=== PATIENT | female | born 1990 | race Caucasian/White ===

== ENCOUNTER → 2021-04-30 | Outpatient (CLI) | payer BC ==
[~2021-04-30] MED LIST: NORCO 5-325 TA1 EACH PO; TORADOL 10 MG T10 MG PO; ZOFRAN4 MG PO
== END ==
LOC: EXRD 07:54 → US 05-04 09:45
DX: R10.13 Epigastric pain (principal); K21.9 Gastro-esophageal reflux disease without esophagitis; R11.0 Nausea; N28.1 Cyst of kidney, acquired
CPT/HCPCS: 76705

== ENCOUNTER → 2021-05-12 | Outpatient (CLI) | payer BC | LOC: NM 08:18 | DX: R10.13 Epigastric pain (principal); R11.0 Nausea; K21.9 Gastro-esophageal reflux disease without esophagitis; R93.2 Abnormal findings on diagnostic imaging of liver and biliary tract | CPT/HCPCS: 78227; A9537; J2805 ==